=== PATIENT | female | born 1955 ===

== ENCOUNTER 2018-04-05 14:17 | Outpatient (CLI) | payer OTHER ==
--- NOTE | 2018-04-05 15:43 | RAD ---
THREE VIEWS OF THE RIGHT SHOULDER: 04/05/18 INDICATION: Right shoulder pain without known trauma. COMPARISON: None. FINDINGS: The visualized right lung is clear. There is mild AC joint osteoarthrosis. No acute fracture or sublu xation is evident. IMPRESSION: 1. No acute osseous abnormality. 2. Mild AC joint osteoarthrosis. POS: [facility]
== END 2018-04-05 14:18 | disposition home or self-care (01) ==
LOC: BURRAD 14:17
PROVIDERS: ATTEND Family Medicine
DX: M25.511 Pain in right shoulder (principal); M19.011 Primary osteoarthritis, right shoulder